=== PATIENT | male | born 1975 | race Caucasian/White ===

== ENCOUNTER 2016-06-29 23:07 | Observation (INO) | payer OTHER ==
--- NOTE | ~2016-06-29 | OP ---
Record Of Operation [facility] [address] [place]. [address] NAME: JOURDAN GUERRERO : 79 STATUS : DIS IN PAT#: [id number] AGE: 40 ADM/REG DATE : 06/29/16 MR#: [id number] REPORT SERV DATE: 07/01/16 DICTATED BY: GORGE MOSLEY DATE: 06/30/16 REPORT STATUS : Draft TRANSCRIBED BY: MODL DATE: 06/30/16 DATE OF PROCEDURE: 06/30/2016 PREOPERATIVE DIAGNOSIS: Acute appendicitis. POSTOPERATIVE DIAGNOSIS: Acute appendicitis. PROCEDURE: Laparoscopic appendectomy. SURGEON: Gorge Mosley M.D. RESIDENT: Erasto Manzano M.D. ANESTHESIA: General and local. IV FLUIDS: 800. ESTIMATED BLOOD LOSS: 10. SPECIMENS: Appendix. COMPLICATIONS: None. INDICATIONS: This is a 40-year-old male, who presented to the emergency department with abdominal pain. He had workup consistent with acute appendicitis. He was given the risks, benefits, and alternatives of the operation, and likes to go forward. DESCRIPTION OF PROCEDURE: The patient was taken to the operating room, placed on operating table. He was prepped and draped in normal sterile fashion after undergoing endotracheal anesthesia, after which time-out was performed. Skin incision was made through the umbilicus down to the fascia. Daylin clamp was used to gain access to the abdomen. A 10 mm trocar was placed in the abdomen, which was insufflated and found to be of no injuries. At this time, a 5 mm port was placed in the right upper quadrant and lower midline, after which the gallbladder was able to be seen. It was found to be inflamed and edematous with no purulence or signs of perforation. The mesentery was grasped and a window was made between the gallbladder and mesentery, after which a 45 mm tissue load stapler was placed across the base of the appendix and fired. Next, mesentery was taken with a vascular load and this was done with a . After the appendix was taken out, it was placed in the Endopouch and removed from the abdomen. Trocars were placed back inside. Blood in the area was suctioned out with the two small spots cauterized. Afterwards, there was found to be no signs of bleeding. Two 5 mm trocars removed under direct visualization. No bleeding. After which a bulb tip suction was placed in the abdomen. The abdomen was deflated. The 10 mm trocar was pulled out. Umbilical fascia was closed using a 0 Vicryl suture in figure-of- eight fashion. Skin incisions closed with 5-0 Monocryl, dressed with Steri-Strips bandage. The patient is expected to be extubated and go to the PACU in stable condition. Record Of Operation [address] [address] NAME: JOURDAN GUERRERO : 79 STATUS : DIS IN PAT#: [id number] AGE: 40 ADM/REG DATE : 06/29/16 MR#: [id number] REPORT SERV DATE: 07/01/16 DICTATED BY: GORGE MOSLEY DATE: 06/30/16 REPORT STATUS : Draft TRANSCRIBED BY: FRANK DATE: 06/30/16 DICTATED BY: MD CANDICE Resendiz/FRANK Gorge Mosley M.D. / [id number] CC: Elana Beck
[2016-06-29 20:57] LABS: BASOPHILS 0.4 %; BASOPHILS ABSOLUTE 0.05 10/3/uL (0.0-0.16); EOSINOPHILS 1.5 %; EOSINOPHILS ABSOLUTE 0.18 10/3/uL (0.0-0.53); HEMATOCRIT 45.3 % (40.0-51.0); HEMOGLOBIN 16.2 g/dL (13.6-17.8); IMMATURE GRANULOCYTES 0.6 %; IMMATURE GRANULOCYTES ABSOLUTE 0.07 10/3/uL (0.0-0.11); LYMPHOCYTES 15.2 %; LYMPHOCYTES ABSOLUTE 1.82 10/3/uL (0.67-4.30); MANUAL DIFF NO %; MEAN CORPUS HGB CONC 35.8 g/dL (32.0-36.0); MEAN CORPUSCULAR HEMOGLOB 33.8 pg (26.0-34.0); MEAN CORPUSCULAR VOLUME 94.4 fL (80-100); MEAN PLATELET VOLUME 8.3 fL (9.2-13.0); MONOCYTES 5.4 %; MONOCYTES ABSOLUTE 0.65 10/3/uL (0.21-1.20); NEUTROPHILS 76.9 %; NEUTROPHILS ABSOLUTE 9.24 10/3/uL (2.02-8.40); PLATELET COUNT 265 10/3/uL (150-400)
[2016-06-29 21:02] LABS: ASCORBIC ACID (UR NOT ORDER) NEG (NEG); BILIRUBIN, URINE NEGATIVE (NEG); ER URINALYSIS TAT 0 Hrs 11 Mins; KETONE, URINE NEGATIVE (NEG); LEUKOCYTE ESTERASE(NOT OR NEG (NEG); NITRITE (URINE) NEG (NEG); WBC (NOT ORDERED) (RFLEX) < 1 (0-5)
[2016-06-29 21:13] LABS: A/G RATIO 1.2 (0.7-1.9); ALBUMIN 4.3 G/DL (3.5-5.0); CALCIUM, SERUM 8.6 MG/DL (8.5-10.4); CHLORIDE, SERUM 104 MMOL/L (96-112); CO2 (CARBON DIOXIDE) 27 MMOL/L (24-34); CREATININE 1.05 MG/DL (0.70-1.30); GFR AFRICAN AMERICAN 104 ML/MIN (>=60); GFR NON AFRICAN AMERICAN 90 ML/MIN (>=60); GLOBULIN 3.5 G/DL (2.5-4.1); GLUCOSE, SERUM 85 MG/DL (60-99); POTASSIUM, SERUM 4.1 MMOL/L (3.5-5.3); SGOT(AST) 23 U/L (5-40); SGPT(ALT) 47 U/L (5-65); SODIUM, SERUM 140 MMOL/L (135-148); TOTAL BILIRUBIN 0.3 MG/DL (0-1.2); TOTAL PROTEIN 7.8 G/DL (6.0-8.5)
[2016-06-29 21:14] LABS: ALKALINE PHOSPHATASE 91 U/L (45-117); BUN (BLOOD UREA NITROGEN) 15 MG/DL (6-23)
[~2016-06-29 23:07] MED LIST: BUSPAR30 MG PO; CELEXA20 PO; EXCEDRIN PM PO; KLONO5 PO; PRILOSEC OTC20 MG PO; REFRESH OPH; TRILEP300 PO
[2016-06-30] MEDS ORDERED: PCET PO (12:22)
== END 2016-06-30 18:00 | disposition home or self-care (01) ==
LOC: ER 23:07 → 5SO 23:37
PROVIDERS: Emergency Medicine; Specialist
PROC: 0DTJ4ZZ Resection of Appendix, Percutaneous Endoscopic Approach (ICD-10-PCS; principal; 2016-06-30 07:15)
DX: K35.80 Unspecified acute appendicitis (principal); K21.9 Gastro-esophageal reflux disease without esophagitis; F41.9 Anxiety disorder, unspecified; Z87.891 Personal history of nicotine dependence
CPT/HCPCS: 71010; 74177; 80053; 81001; 83690; 85025; 88304; 96374; 96375; 96376; 99291; A9270-GY; G0378; J1170; J1885; J2250; J2405; J2543; J2710; J3010; Q9967